=== PATIENT | female | born 1955 | race Caucasian/White ===

== ENCOUNTER 2020-07-27 14:17 | Emergency (ER) | payer OTHER ==
[~2020-07-27] VITALS: Ht 162.6 cm; Wt 54.0 kg
--- NOTE | ~2020-07-27 | EKG ---
[facility] [place] [address] ELECTROCARDIOGRAM REPORT Name: POORNIMA MCCAIN Room #: [facility].#: [id number] Admission: 07/27/20 Attend Phys: Discharge: Date of : 55 Report #: [id number] THIS REPORT FOR: cc: Charu Romeo MD, Mary Ann MD Epiphany,Irving RUSHING ~ THIS REPORT FOR: //name// [facility] ED Test Date: 2020-07-27 Test Time: 15:15:12 Pat Name: POORNIMA MCCAIN Department: Room: Gender: F Director Of Catering Sales: ZHANE : 1955 Requested By: Priyanka Martinez Order Number: [id number] MD: Measurements Intervals [place] Rate: 72 P: 50 LA: 214 QRS: 18 QRSD: 92 T: 58 QT: 366 QTc: 401 Interpretive Statements Sinus rhythm Borderline prolonged LA interval Compared to ECG 05/08/1995 20:57:00 Poor R-wave progression no longer present Myocardial infarct finding no longer present [email or web address] By: 1515 1515 Epiphany MD Irving /EPI
[2020-07-27] MEDS ORDERED: ZESTRIL5 MG PO (14:27)
[2020-07-27] MEDS ORDERED: KAPVAY0.1 MG PO (14:27)
[2020-07-27] MEDS ORDERED: LORAZEPAM 1 MG T1 MG PO (14:27)
[2020-07-27] MEDS ORDERED: WELLBUTRIN XL300 MG PO (14:27)
[2020-07-27] MEDS ORDERED: INGREZZA40 MG PO (14:28)
[2020-07-27] MEDS ORDERED: LODOSYN 25 MG T25 M1 PO (14:28)
[2020-07-27] MEDS ORDERED: SEROQUEL 50 MG50 M1 PO (14:29)
[2020-07-27 15:34] LABS: ABSOLUTE NEUTROPHILS 2.7 thou/uL (1.4-8.2); BASOPHILS 0.8 % (0.0-2.0); HEMATOCRIT 40.6 % (37.0-47.0); HEMOGLOBIN 13.5 gm/dL (12.0-15.0); LYMPHOCYTES 31.7 % (24.0-44.0); MCH 29.9 pg (26.0-34.0); MCHC 33.2 g/dL (28.0-37.0); MCV 90.1 fL (80.0-100.0); MONOCYTES 9.9 % (1.0-8.0); PLATELET COUNT 184 thou/uL (150-400); POLYS 56.6 % (36.0-66.0); RDW 14.7 % (10.5-14.5); WBC 4.8 thou/uL (4.0-11.0)
[2020-07-27 15:43] LABS: ANION GAP 7 mmol/L (7-16); BUN 11 mg/dL (7-18); CALCIUM 9.1 mg/dL (8.5-10.1); CHLORIDE 101 mmol/L (98-107); CO2 27 mmol/L (21-32); CREATININE 0.9 mg/dL (0.6-1.0); GLUCOSE 96 mg/dL (74-106); POTASSIUM 5.8 mmol/L (3.5-5.1); SODIUM 135 mmol/L (136-145)
[2020-07-27 15:49] LABS: ALBUMIN 3.5 g/dL (3.4-5.0); DIRECT BILIRUBIN < 0.1 mg/dL (<0.1-0.2); LIPASE 83 U/L (73-393); SGOT 32 U/L (15-37); SGPT < 6 U/L (30-65); TOTAL BILIRUBIN 0.6 mg/dL (0.2-1.0); TOTAL PROTEIN 7.7 g/dL (6.4-8.2)
[2020-07-27 17:34] LABS: URINE BILIRUBIN NEGATIVE (Negative); URINE BLOOD NEGATIVE (Negative); URINE CLARITY CLEAR; URINE COLOR YELLOW; URINE GLUCOSE-RANDOM* NEGATIVE (Negative); URINE KETONES NEGATIVE (Negative); URINE LEUKOCYTES-REFLEX NEGATIVE (Negative); URINE NITRITE-REFLEX NEGATIVE (Negative); URINE PROTEIN (DIPSTICK) NEGATIVE (Negative); URINE UROBILINOGEN 0.2 E.U./dl (0.2-1.0)
[2020-07-27] MEDS ORDERED: BENTYL 20 MG TA20 M1 PO (18:34)
[2020-07-27] MEDS ORDERED: ZOFRAN ODT4 MG PO (18:34)
[2020-07-27] MEDS ORDERED: CARAFATE 1 GM TA1 G1 PO (18:34)
[2020-07-27 19:08] VITALS: BP 124/84
== END 2020-07-27 19:04 | disposition home or self-care (01) ==
LOC: ER 14:17
PROVIDERS: Emergency Medicine
DX: R10.13 Epigastric pain (principal); R11.10 Vomiting, unspecified; I10 Essential (primary) hypertension; E78.5 Hyperlipidemia, unspecified; F32.9 Major depressive disorder, single episode, unspecified; K21.9 Gastro-esophageal reflux disease without esophagitis; Z79.899 Other long term (current) drug therapy